=== PATIENT | male | born 1955 | race Caucasian/White ===

== ENCOUNTER 2018-09-27 12:59 | Emergency (ER) | payer OTHER, SELFPAY ==
[2018-09-27 12:59] VITALS: BP 134/102; PULSE 92; RESP 18; TEMP 36.6; O2SAT 100; BMI 25.8
[2018-09-27 13:21] LABS: Bedside Glucose 377 mg/dL (70-110)
--- NOTE | 2018-09-27 13:27 | EKG12_ITS ---
Test Reason : HYPERGLYCEMIC Blood Pressure : / mmHG Vent. Rate : 081 BPM Atrial Rate : 081 BPM P-R Int : 184 ms QRS Dur : 098 ms QT Int : 352 ms P-R-T Axes : 042 -11 031 degrees QTc Int : 408 ms Normal sinus rhythm Normal ECG Confirmed by JOSE ALEJANDRO HARDY, ESTEBAN ([id number]), school photograph editor JOHN NEFF ([id number]) on 09/28/2018 8:22:55 AM Referred By: LESIA Confirmed By:ESTEBAN BLOUNT MD
[2018-09-27] MEDS: 0.9% Normal Saline 1,000 ML 1000 ML IV (13:48)
[2018-09-27 13:51] VITALS: BP 145/96; PULSE 79; RESP 12; O2SAT 99
--- NOTE | 2018-09-27 13:57 | ED.VIS.GEN ---
History of Present Illness Chief Complaint: Hyperglycemia Detail of Chief Complaint: Blood sugar greater than 500 Informant: Patient Onset: Today Context: Sudden Onset Quality: Difficulty regulating blood sugar since medication changed Location: Not applicable Current Severity: Moderate Maximum Severity: Moderate Worsened by: Change in medication Relieved by: Nothing Associated Symptoms: Polyuria, polydipsia, polyphagia and nocturia and blurred vision Narrative: Patient is a type II diabetic whose meds were changed because of complications from his medications. He reports polyuria, polydipsia, polyphagia, nocturia and intermittent blurred vision. He presents because blood sugar was greater than 500 at home. His last A1c was 9.4. He denies fever, chills or night sweats. He denies trouble with speech or swallowing. He denies cardiac respiratory symptoms. He denies abdominal pain. He denies melena, maroon stool or blood in the stool. He denies diarrhea. He denies frequency. He reports intermittent dysuria. He denies skin lesions. He made comment that he believes his water balance is off because he is been told to drink more fluids since medications were changed. - Past Medical History (1) Type 2 diabetes mellitus Status: Chronic Past Medical History - Allergies and Home Meds Allergies/Adverse Reactions: Allergies No Known Allergies Allergy (Verified 09/27/18 13:01) Primary Care Physician: Chip Pan III, MD [Primary Care Provider] - Prior records reviewed: Yes Surgical History: no surgical history Lives: Alone Smoking Status: Never smoker Alcohol: None Review of Systems General: Denies: Chills, Fever, Malaise, Subjective, Sweats Eyes: Reports: Blurred Vision - bilaterally. Denies: Visual changes - bilaterally, Diplopia ENT: Denies: Bilateral ear pain, Rhinorrhea, Sore throat Cardiovascular: Denies: Chest pain, Palpitations Respiratory: Denies: Dyspnea, Cough, Dyspnea on exertion Gastrointestinal: Denies: Abdominal pain, Nausea, Vomiting, Diarrhea, Melena, Hematochezia Genitourinary: Reports: Dysuria. Denies: Hematuria, Frequency Musculoskeletal: Denies: Back pain, Extremity Pain Skin: Denies: Rash, Wounds Neurological: Denies: Headache, Weakness, Numbness Endocrine: Reports: Polyuria, Polydipsia. Denies: Heat intolerance, Cold intolerance Hematologic: Denies: Easy bruising, Easy bleeding Physical Exam Vital Signs/Narrative: Vital Signs Temp Pulse Resp BP Pulse Ox 09/27/18 13:51 79 12 145/96 H 99 09/27/18 12:59 98 F 92 18 134/102 H 100 Inital Vital Signs reviewed: Yes General: Well nourished, Well developed, No Acute Distress Head: Normocephalic, Atraumatic Eyes: Perrl, EOMI ENT: Moist mucous membranes, No rhinorrhea, Dry mucous membranes Neck: Supple, Nontender Cardiovascular: Regular rate, Regular rhythm, No murmurs Respiratory: No distress, CTA bilaterally, Chest nontender Abdomen: Soft, Nontender, Nondistended, Normal bowel sounds Back: Nontender, Normal Inspection Extremities: Nontender, No edema Skin: Normal color, No rash Neurological: Alert, Oriented x3, Cranial nerves II-XII grossly intact, Normal Strength, Normal Sensation Psychological: Normal affect, Normal Mood Diagnostic/Tx/Re-eval Laboratory Results 09/27/18 09/27/18 09/27/18 13:16 13:45 13:45 WBC 5.2 RBC 4.47 L Hgb 12.8 L Hct 37.1 L MCV 83.0 MCH 28.6 MCHC 34.5 RDW 12.7 RDW Differential 38.0 Plt Count 191 MPV 10.8 Immature Gran % (Auto) 0.000 Neut % (Auto) 66.1 Lymph % (Auto) 21.5 [place] % (Auto) 8.3 Eos % (Auto) 3.9 Baso % (Auto) 0.2 Absolute Neuts (auto) 3.4 Absolute Lymphs (auto) 1.11 Total Counted Not Reportable Sodium 130 L Potassium 4.4 Chloride 95 L Carbon Dioxide 29.0 Anion Gap 6 BUN 19 H Creatinine 2.07 H Estim Creat Clear Calc 35.34 Est GFR (MDRD) Af Amer 42 L Est GFR (MDRD) Non-Af 35 L BUN/Creatinine Ratio 9.2 L Glucose 372 H Calcium 8.6 POC Glucose 377 H 09/27/18 15:19 WBC RBC Hgb Hct MCV MCH MCHC RDW RDW Differential Plt Count MPV Immature Gran % (Auto) Neut % (Auto) Lymph % (Auto) [place] % (Auto) Eos % (Auto) Baso % (Auto) Absolute Neuts (auto) Absolute Lymphs (auto) Total Counted Sodium Potassium Chloride Carbon Dioxide Anion Gap BUN Creatinine Estim Creat Clear Calc Est GFR (MDRD) Af Amer Est GFR (MDRD) Non-Af BUN/Creatinine Ratio Glucose Calcium POC Glucose 306 H Creatinine September 14, 2016 was 0.8. Creatinine on February 27, 2017 was 1.06. Creatinine December 27, 2017 was 1.2. Creatinine on August 15 was 1.83. - EKG Initial EKG Interpretation: Sinus Rhythm - Ventricular rate 81. KS interval, QT interval and axis are normal. QRS duration is 98 ms. - Medical Decision Making An IV was established and he will received 1 L of normal saline. Will assess Basic metabolic panel to evaluate electrolyte, CO2 and anion gap as well as blood sugar. UA was obtained because of his reported complaint of intermittent dysuria and to assess for ketones. EKG was obtained to evaluate for ischemic changes and changes associated with hyperkalemia. Patient received 1 L of normal saline. He has urinated. He was treated with subcu insulin. Since there is no significant change in his creatinine plan is to discharge to home to follow-up with Dr. Bradley for referral to pulp refiner operator. ED Disposition - Plan for ED Patient: Disposition: Home or Assisted Living Diagnosis: Uncontrolled type 2 diabetes mellitus with hyperglycemia, End stage renal disease on dialysis due to type 2 diabetes mellitus, Mild dehydration Instructions: ED Hyperglycemia Diabetic Referrals: Chip Pan III, MD [Primary Care Provider] - 3-5 Days Additional Instructions: Since your blood sugar is poorly controlled recommend contacting Dr. Bradley's office for follow-up and probable referral to pulp refiner operator.
[2018-09-27 13:58] LABS: Absolute Lymphocyte Count 1.11 X10^3/ul (0.83-4.51); Absolute Neutrophil Count 3.4 X10^3/uL (2.0-7.7); Basophil# 0.01 X10^3/uL; Basophil% 0.2 % (0-1); Eosinophils% 3.9 % (0-5); Hematocrit 37.1 % (40-54); Hemoglobin 12.8 g/dl (13.0-16.5); Lymphocyte # 1.11 X10^3/ul (4.0); Lymphocyte % 21.5 % (19-41); Mean Corp Hgb Conc 34.5 g/gl (32-36); Mean Corpuscular Hgb 28.6 pg (27.0-32.0); Mean Platelet Vol. 10.8 fl (6.2-12.0); Monocyte# 0.43 X10^3/uL; Monocyte% 8.3 % (0-10); Neutrophil # 3.41 X10^3/uL (2.7-7.7); Neutrophil % 66.1 % (47-70); Platelet Count 191 K/mm3 (150-450); RBC Distribution Width CV 12.7 % (11.6-14.6); Red Blood Count 4.47 M/mm3 (4.6-6.2); White Blood Count 5.2 K/mm3 (4.4-11.0)
[2018-09-27 14:00] LABS: POSITIVE COUNT NO; POSITIVE DIFFERENTIAL NO; POSITIVE MORPHOLOGY NO
[2018-09-27 14:10] LABS: Anion Gap 6 (5-15); BUN 19 mg/dL (7-18); BUN/Creat Ratio 9.2 RATIO (10-20); Calcium,Total 8.6 mg/dL (8.5-10.1); Chloride 95 mmol/L (98-107); Creatinine, Serum 2.07 mg/dL (0.70-1.30); EST Glomerular Filtration Rate 35 mL/min (>60); Est Glom Filt Rate - Afr Amer 42 mL/min (>60); Estimated Creatinine Clearance 35.34 ml/min; Glucose 372 mg/dL (74-106); Potassium 4.4 mmol/L (3.5-5.1); Sodium Level 130 mmol/L (136-145)
[2018-09-27 15:21] VITALS: BP 141/92; PULSE 81; RESP 16; O2SAT 98
[2018-09-27 15:26] LABS: Bedside Glucose 306 mg/dL (70-110)
[2018-09-27] MEDS: Insulin Lispro 100 UNIT/ML INSULN.PEN SC (15:41)
== END 2018-09-27 15:44 | disposition home or self-care (01) ==
PROVIDERS: Emergency Provider Emergency Medicine; Family Provider Family Medicine; PCP Family Medicine
DX: E11.65 Type 2 diabetes mellitus with hyperglycemia (principal); E11.22 Type 2 diabetes mellitus with diabetic chronic kidney disease; N18.6 End stage renal disease; Z99.2 Dependence on renal dialysis; E86.0 Dehydration
CPT/HCPCS: 80048; 82962; 85025; 93005; 96360; 99284; J7030

== ENCOUNTER → 2019-12-08 14:16 | Outpatient (CLI) | payer SELFPAY | PROVIDERS: PCP Family Medicine; Referring Provider Nurse Practitioner Family; Visit Provider Nurse Practitioner Family | DX: R05 Cough (principal); R06.02 Shortness of breath; E11.22 Type 2 diabetes mellitus with diabetic chronic kidney disease | CPT/HCPCS: 87635; G2023; U0003 ==

== ENCOUNTER 2020-07-11 17:09 | Emergency (ER) | payer MEDICARE, OTHER, SELFPAY ==
[2020-07-11 17:10] VITALS: BP 205/128; PULSE 104; RESP 16; TEMP 36.3; O2SAT 99; BMI 27.3
--- NOTE | 2020-07-11 17:27 | ED.VIS.GEN ---
History of Present Illness Chief Complaint: Kwong C/O Informant: Patient Narrative: Patient is a 65-year-old male who presents to the emergency department after he was told to come in after he had an ultrasound of his kidneys today. He was told to get a Kwong catheter placed. This initially started on Wednesday whenever he had routine lab work done. That time they prompted him to get the ultrasound. He had this done around 3 PM today. At 4 PM they told him to come to the emergency department. They state that he did not completely empty his bladder whenever he urinated prior to getting the ultrasound. He states he does have difficulty starting pain. He does feel like he gets a distention around his kidneys/flanks bilaterally. Not sure for how long this has been going on. He denies any hematuria or dysuria. He denies any abdominal pain. No back pain. No fevers. He denies any history of BPH or prostate cancer. Past Medical History - Allergies and Home Meds Allergies/Adverse Reactions: Allergies No Known Allergies Allergy (Verified 07/11/20 17:13) Primary Care Physician: Chip Pan III, MD [Primary Care Provider] - Vj Brown MD [STAFF PHYSICIAN] - 3-5 Days Prior records reviewed: Yes Surgical History: no surgical history Smoking Status: Never smoker Review of Systems All systems negative except as indicated General: Reports: Chills, Weight loss - Intentional. Denies: Fever, Sweats Eyes: Denies: Visual changes - bilaterally, Diplopia ENT: Denies: Rhinorrhea, Sore throat Cardiovascular: Denies: Chest pain, Palpitations Respiratory: Denies: Dyspnea, Cough, Dyspnea on exertion Gastrointestinal: Denies: Abdominal pain, Nausea, Vomiting, Diarrhea Genitourinary: Reports: - - Difficulty urinating. Denies: Dysuria, Hematuria, Frequency Musculoskeletal: Denies: Back pain, Extremity Pain Skin: Denies: Rash, Wounds Neurological: Denies: Headache, Weakness, Numbness Physical Exam Vital Signs/Narrative: Vital Signs Temp Pulse Resp BP Pulse Ox 07/11/20 17:10 97.4 F L 104 H 16 205/128 H 99 Inital Vital Signs reviewed: Yes General: Well nourished, Well developed, No Acute Distress Head: Normocephalic, Atraumatic Eyes: Perrl, EOMI ENT: Moist mucous membranes, No rhinorrhea Neck: Supple, Nontender Cardiovascular: Regular rate, Regular rhythm, No murmurs Respiratory: No distress, CTA bilaterally, Chest nontender Abdomen: Soft, Nontender, Normal bowel sounds, - - Abdominal distention present Back: Nontender, Normal Inspection. Negative for: CVA tenderness Extremities: Nontender, No edema. Negative for: Calf Tenderness Skin: Normal color, No rash Neurological: Alert, Oriented x3, Cranial nerves II-XII grossly intact, Normal Strength, Normal Sensation Psychological: Normal affect, Normal Mood Diagnostic/Tx/Re-eval - Medical Decision Making Patient presents to the emergency department after he is told to come in after getting an ultrasound done. He apparently was told to get a Kwong placed. Upon arrival he states he does have to urinate and is attempting to now. Upon arrival his blood pressure is very elevated. Is 205/128. He otherwise has no complaints otherwise. Patient was able to urinate 275 mL. Repeat ultrasound was obtained which showed significant bladder distention still. At that time Kwong catheter was placed. Over 1300 mL of urine was then obtained. Will leave Kwong catheter in place. He is hypertensive but this does fluctuate throughout ED stay. He states that it does occasionally get this high at home but fluctuates. He apparently has been off of his home medications for blood pressure in the past few days. He states he will get start taking them again. He needs to have close follow-up with his PCP to manage this better. He otherwise denies any chest pain, shortness of breath, headaches. This time he has no complaints and will discharge him home in stable condition. Return precautions were discussed with him. He was instructed on care guidelines for the Kwong catheter. Urology referral made. He understands and is agreeable with plan. Discharged home in stable condition. All questions answered. ED Disposition - Plan for ED Patient: Disposition: Home or Assisted Living Diagnosis: Urinary retention, Hypertension Instructions: Caring for Your Indwelling Urinary Catheter, ED Hypertension, Established Referrals: Chip Pan III, MD [Primary Care Provider] - Vj Brown MD [STAFF PHYSICIAN] - 3-5 Days
[2020-07-11 17:44] LABS: Bacteria 0 SEEN /hpf (None Seen); Mucous, Urine 0 SEEN /hpf (<or=2+); White Blood Cells 0 SEEN /hpf (0-5)
[2020-07-11 17:45] VITALS: BP 220/130; PULSE 78; RESP 16; O2SAT 98
--- NOTE | 2020-07-11 17:50 | ED.RN ---
voided 225cc. treviño placed drained 1325cc. urine specimen sent to lab
[2020-07-11 17:56] LABS: Color, Urine Yellow (Yellow); Glucose, Dipstick 1000 mg/dl (Normal); Ketone-Dipstick Negative (Negative); Leukocyte Esterase-Dipstick Negative /ul (Negative); Nitrite-Dipstick Negative (Negative); Occult Blood-Urine 250 /ul (Negative); Protein-Dipstick Negative (Negative); Specific Gravity, Urine 1.005 (1.002-1.030); Urine Bilirubin Dipstick Negative (Negative); Urine Clarity Sl. Cloudy (Clear); Urine Urobilinogen Normal (Normal)
[2020-07-11 18:18] LABS: Red Blood Cells-Urine 10-25 SEEN /hpf (0-5); Squamous Epithelial Cells - UA 0-5 SEEN /hpf (0-5)
--- NOTE | 2020-07-11 18:54 | ED.RN ---
pt bp remains elevated pt reports has not beedn taking bp mes. he eats raw garlic and that has been keeping it down. was advice to take his perscribed bp meds. and monitor.
[2020-07-11 18:56] VITALS: BP 203/122; PULSE 89; RESP 16; O2SAT 99
== END 2020-07-11 19:05 | disposition home or self-care (01) ==
LOC: ED 18:14
PROVIDERS: Emergency Provider Emergency Medicine; PCP Family Medicine
DX: R33.9 Retention of urine, unspecified (principal); N32.89 Other specified disorders of bladder; I10 Essential (primary) hypertension; Z79.899 Other long term (current) drug therapy
CPT/HCPCS: 51702; 81001; 99283

== ENCOUNTER 2020-07-26 20:47 | Emergency (ER) | payer MEDICARE, OTHER, SELFPAY ==
[2020-07-26 20:48] VITALS: BP 119/82; PULSE 94; RESP 16; TEMP 36.6; O2SAT 97; BMI 28.8
[2020-07-26 21:10] LABS: Bedside Glucose 437 mg/dL (70-110)
--- NOTE | 2020-07-26 21:36 | ED.VIS.GEN ---
History of Present Illness Chief Complaint: Hyperglycemia Informant: Patient Narrative: Patient is a 65-year-old male with a past medical history of diabetes who presents to the emergency department for elevated blood sugars. He states last night he ate a solid that had a lot of dressing on it. He checked his blood sugar and it was in the high 300s. This morning he rechecked it it was still around the same number. He had not eaten all day. He started to feel very hungry in the afternoon so he ended up eating another solid. His blood sugar remained in the high 300s. He did take his insulin. He is on Novolin 70/30. He has been having some medication changes. He was previously on Metformin but had to be taken off this due to kidney issues. He otherwise feels fine. He has no complaints. He denies any recent illness including any cough, fever/chills. No chest pain or shortness of breath. No abdominal pain or nausea/vomiting. No diarrhea. He does have a chronic indwelling Kwong which she is supposed to have surgery for enlarged prostate soon. He denies any hematuria. He denies any significant increase in thirst or urine output. Past Medical History - Allergies and Home Meds Allergies/Adverse Reactions: Allergies No Known Allergies Allergy (Verified 07/26/20 20:51) Primary Care Physician: Chip Pan III, MD [Primary Care Provider] - As soon as possible Prior records reviewed: Yes - Hypertension, hyperlipidemia, diabetes, BPH Surgical History: no surgical history Smoking Status: Never smoker Review of Systems All systems negative except as indicated General: Denies: Chills, Fever, Sweats Eyes: Denies: Visual changes - bilaterally, Diplopia ENT: Denies: Rhinorrhea, Sore throat Cardiovascular: Denies: Chest pain, Palpitations Respiratory: Denies: Dyspnea, Cough, Dyspnea on exertion Gastrointestinal: Denies: Abdominal pain, Nausea, Vomiting, Diarrhea, Melena, Hematochezia Genitourinary: Denies: Dysuria, Hematuria, Frequency Musculoskeletal: Denies: Back pain, Extremity Pain Skin: Denies: Rash, Wounds Neurological: Denies: Headache, Weakness, Numbness Physical Exam Vital Signs/Narrative: Vital Signs Temp Pulse Resp BP Pulse Ox 07/26/20 20:48 97.8 F 94 16 119/82 H 97 Inital Vital Signs reviewed: Yes General: Well nourished, Well developed, No Acute Distress Head: Normocephalic, Atraumatic Eyes: Perrl, EOMI ENT: Moist mucous membranes, No rhinorrhea Neck: Supple, Nontender Cardiovascular: Regular rate, Regular rhythm, No murmurs Respiratory: No distress, CTA bilaterally, Chest nontender Abdomen: Soft, Nontender, Nondistended, Normal bowel sounds : - - Indwelling Kwong. Urine and output bag is clear. Back: Nontender, Normal Inspection Extremities: Nontender, No edema Skin: Normal color, No rash Neurological: Alert, Oriented x3, Cranial nerves II-XII grossly intact, Normal Strength, Normal Sensation Psychological: Normal affect, Normal Mood Diagnostic/Tx/Re-eval - Medical Decision Making Patient presents to the emerge department for high blood glucose readings. Upon arrival to the emerge department he is in no apparent distress. Vital signs within normal limits. Physical exam is benign. Will check basic lab work. Patient's lab work did reveal him to be hyperglycemic. His creatinine appears to be at his baseline. No evidence of anion gap acidosis. No DKA. He otherwise is well-appearing throughout ED stay. He completed a bolus of IV fluids and was given a subcu dose of 10 units of insulin. His glucose has been trending down. He does feel comfortable going home. He needs to contact his PCP in the morning for potential insulin change. He understands and is agreeable this plan. Return precautions were discussed with him. Discharged home in stable condition. All questions answered. ED Disposition - Plan for ED Patient: Disposition: Home or Assisted Living Diagnosis: Hyperglycemia Instructions: ED Diabetic Hyperglycemia Referrals: Chip Pan III, MD [Primary Care Provider] - As soon as possible
[2020-07-26 21:58] LABS: Bacteria 0 SEEN /hpf (None Seen); Mucous, Urine 0 SEEN /hpf (<or=2+); Squamous Epithelial Cells - UA 0 SEEN /hpf (0-5)
[2020-07-26 21:59] LABS: Absolute Neutrophil Count 4.3 X10^3/uL (2.0-7.7); Basophil# 0.04 X10^3/uL; Basophil% 0.6 % (0-1); Eosinophil# 0.36 X10^3/uL; Eosinophils% 5.8 % (0-5); Hematocrit 36.2 % (40-54); Hemoglobin 12.1 g/dL (13.0-16.5); Lymphocyte % 19.4 % (19-41); Mean Corp Hgb Conc 33.4 g/dL (32-36); Mean Corpuscular Hgb 27.4 pg (27.0-32.0); Mean Corpuscular Volume 82.1 fL (80-94); Mean Platelet Vol. 10.7 fl (6.2-12.0); Monocyte% 4.9 % (0-10); NRBC Flagged by Analyzer 0 % (0-5); Neutrophil # 4.25 X10^3/uL (2.7-7.7); Platelet Count 242 K/mm3 (150-450); RBC Distribution Width CV 13.4 % (11.6-14.6); RBC Distribution Width SD 39.7 fl (35.1-43.9); Red Blood Count 4.41 M/mm3 (4.6-6.2); White Blood Count 6.2 K/mm3 (4.4-11.0)
[2020-07-26 22:04] LABS: Color, Urine Yellow (Yellow); Glucose, Dipstick 1000 mg/dl (Normal); Ketone-Dipstick Negative (Negative); Leukocyte Esterase-Dipstick 25 /ul (Negative); Nitrite-Dipstick Negative (Negative); Occult Blood-Urine 150 /ul (Negative); Protein-Dipstick 15 mg/dl (Negative); Urine Bilirubin Dipstick Negative (Negative); Urine Clarity Clear (Clear); Urine Urobilinogen Normal (Normal)
[2020-07-26 22:14] LABS: Anion Gap 6 (5-15); BUN 31 mg/dL (7-18); Calcium,Total 8.9 mg/dL (8.5-10.1); Chloride 97 mmol/L (98-107); Creatinine, Serum 2.07 mg/dL (0.70-1.30); EST Glomerular Filtration Rate 34 mL/min (>60); Est Glom Filt Rate - Afr Amer 42 mL/min (>60); Estimated Creatinine Clearance 34.42 ml/min; Glucose 422 mg/dL (74-106); Potassium 3.6 mmol/L (3.5-5.1); Sodium Level 129 mmol/L (136-145)
[2020-07-26 22:23] LABS: Red Blood Cells-Urine 0-5 SEEN /hpf (0-5); White Blood Cells 0-5 SEEN /hpf (0-5)
[2020-07-26] MEDS: Insulin Lispro 100 UNIT/ML INSULN.PEN 10 UNIT SC (22:31)
[2020-07-26] MEDS: 0.9% Normal Saline 1,000 ML 999 ML IV (22:31)
[2020-07-26 23:35] LABS: Bedside Glucose 377 mg/dL (70-110)
[2020-07-27 00:08] VITALS: BP 166/99; PULSE 84; RESP 16; O2SAT 99
== END 2020-07-27 00:09 | disposition home or self-care (01) ==
PROVIDERS: Emergency Medicine; Emergency Provider Emergency Medicine; PCP Family Medicine
DX: E11.65 Type 2 diabetes mellitus with hyperglycemia (principal); I10 Essential (primary) hypertension; E78.5 Hyperlipidemia, unspecified; N40.0 Benign prostatic hyperplasia without lower urinary tract symptoms; Z79.4 Long term (current) use of insulin; Z79.899 Other long term (current) drug therapy
CPT/HCPCS: 36415; 80048; 81001; 82962; 85025; 96360; 99283

== ENCOUNTER 2020-08-02 10:42 | Day surgery (SDC) | payer MEDICARE, OTHER, SELFPAY ==
--- NOTE | 2020-07-29 12:52 | EKG12_ITS ---
Test Reason : PRE OP Blood Pressure : / mmHG Vent. Rate : 078 BPM Atrial Rate : 078 BPM P-R Int : 194 ms QRS Dur : 104 ms QT Int : 360 ms P-R-T Axes : 047 -22 060 degrees QTc Int : 410 ms Sinus rhythm with occasional Premature ventricular complexes Otherwise normal ECG Confirmed by JOSE ALEJANDRO HARDY, ESTEBAN ([id number]), school photograph editor TOM PORTER ([id number]) on 07/31/2020 6:08:31 AM Referred By: Vj Brown Confirmed By:ESTEBAN BLOUNT MD
[2020-07-29 13:46] LABS: Hematocrit 40.4 % (40-54); Hemoglobin 13.1 g/dL (13.0-16.5); Mean Corp Hgb Conc 32.4 g/dL (32-36); Mean Corpuscular Hgb 26.9 pg (27.0-32.0); Mean Platelet Vol. 10.3 fl (6.2-12.0); Platelet Count 250 K/mm3 (150-450); RBC Distribution Width CV 13.3 % (11.6-14.6); RBC Distribution Width SD 40.9 fl (35.1-43.9); Red Blood Count 4.87 M/mm3 (4.6-6.2); White Blood Count 5.3 K/mm3 (4.4-11.0)
[2020-07-29 14:12] LABS: Anion Gap 7 (5-15); BUN 20 mg/dL (7-18); BUN/Creat Ratio 9.6 RATIO (10-20); Calcium,Total 8.9 mg/dL (8.5-10.1); Chloride 97 mmol/L (98-107); Creatinine, Serum 2.08 mg/dL (0.70-1.30); EST Glomerular Filtration Rate 34 mL/min (>60); Est Glom Filt Rate - Afr Amer 41 mL/min (>60); Glucose 229 mg/dL (74-106); Potassium 3.8 mmol/L (3.5-5.1); Sodium Level 132 mmol/L (136-145)
[2020-07-29 14:17] LABS: Hemoglobin A1c 13.4 % (3.8-5.6)
[2020-08-02] VITALS (11 sets, daily range): BP systolic 113–141; BP diastolic 76–88; PULSE 69–86; RESP 16–18; TEMP 35.8–36.8; O2SAT 95–118; BMI 28.0; BMI 28.1
--- NOTE | 2020-08-02 08:01 | PCM.HP.STD ---
Problem List (1) Urinary retention due to benign prostatic hyperplasia Status: Acute History of Present Illness Date of Admission: 08/02/20 Chief Complaint: BPH with retention of urine The patient is a 65 year old male who developed ring urinary retention at this point is been proceed to the hospital for transurethral resection of the prostate we talked about management options he understands the risk of surgery include bleeding infection failure to cure his retention and continued use with catheters etc. Past Medical History Past Medical History (Chronic Problems): Chronic Problems Type 2 diabetes mellitus (Chronic) Allergies losartan [From Cozaar] Allergy (Verified 07/29/20 09:04) PT UNSURE OF REACTION Home Medications: Ambulatory Orders Medication Instructions Recorded Atorvastatin Calcium [Lipitor] 40 mg PO DAILY 09/27/18 hydroCHLOROthiazide 12.5 mg PO DAILY 09/27/18 [Hydrochlorothiazide] Insulin NPH/Reg 70/30 [Novolin 20 units SC BIDAC 07/26/20 70/30] Metoprolol Succinate [Toprol Xl] 50 mg PO DAILY 07/26/20 Tamsulosin HCl 0.4 mg PO DAILY 07/26/20 Amlodipine [Norvasc] 10 mg PO DAILY 07/29/20 Cinnamon Bark [Cinnamon] 1,000 mg PO DAILY 07/29/20 Garlic [Odorless Garlic] 1,250 mg PO DAILY 07/29/20 Multivitamin [Multivitamins] 1 ea PO DAILY 07/29/20 Surgical History: no surgical history Smoking Status: Never smoker Tobacco Use: Non-smoker Review of Systems Constitutional: Denies: Chills, Fever, Weight Change HEENT: Denies: Head Aches, Sinus Congestion, Sinus Drainage Cardiovascular: Denies: Chest Pain, Palpitations Respiratory: Denies: Cough, Shortness of breath at rest, Sputum production Gastrointestinal: Denies: Abdominal Pain, Nausea, Vomiting Genitourinary: Denies: Dysuria Musculoskeletal: Denies: Joint Pain, Joint Tenderness Skin: Denies: Rash, Wounds Neurological: Denies: Numbness, Tingling, Focal weakness Psychiatric: Denies: Anxiety, Depression, Homicidal Ideations, Suicidal Ideations Hematologic/ Lymphatic: Denies: Easy Bruising, Easy Bleeding VTE Information - Inpt Only VTE Present on Admission: No - Physical Exam Vitals/I&O's: Body Mass Index (BMI) 27.3 Finger Stick Blood Glucose 306 General: Alert, Oriented x3, Cooperative HEENT: Atraumatic, PERRLA, EOMI, Normocephalic Neck: Supple, No JVD, Negative Carotid Bruits Lungs: Clear to auscultation, Normal air movement Cardiovascular: Regular rate, No murmurs Abdomen: Bowel Sounds Present, Soft, Non Tender Extremities: No edema, Capillary Refill Less than 3 Seconds Skin: No rashes, No breakdown Musculoskeletal: No Tenderness to Palpation of Joints or Extremities Neurological: Cranial nerves II-XII grossly intact Psych/Mental Status: Normal Affect, Appropriate Microbiology Past 72 Hours 08/01/20 08:45 Interface Orders SARS-CoV-2 Antigen (Rapid) - Final Current Medications Cefazolin Sodium 2 gm/ Sodium (Chloride) 110 mls @ 150 mls/hr IV PREOP ONE Stop: 08/02/20 11:13 Assessment/Plan All Active Problems Urinary retention due to benign prostatic hyperplasia (Acute) Plan to proceed with a TURP
[2020-08-02] MEDS: Lactated Ringers 1,000 ML 100 ML IV ×2 (11:42→13:30)
[2020-08-02 11:51] LABS: Bedside Glucose 249 mg/dL (70-110)
[2020-08-02] MEDS: Cefazolin 2 GM in 0.9% Normal Saline 100 ML IV (11:56)
[2020-08-02] MEDS: Lubricating Jelly 60 GM Tube 30 GM TOPICAL (12:11)
--- NOTE | 2020-08-02 12:55 | PROS_PTH ---
PATIENT: PINKY MEZA LOC: [facility] [place] U#:[id number] AGE/SX: 65/M ROOM: RE08/02/[address]: Dr. Vj Brown MD : [id number] BED: DIS: 08/03/2020 SPEC #: [id number] RECD: 08/02/20 13:53 STATUS: DIONI RERekha #: [id number] CLAUDIA: 08/02/20 12:[address]: Vj Brown DEPT: SURGICAL PATHOLOGY RECD BY: Yanni Collins ENTERED: 08/05/20 07:44 SP TYPE: TURP OTHR DR: Dr. Chip Pan III, MD Tissues: Prostate, NOS Procedures: Surgery Specimen Level IV HEADER OPERATION: Cysto, TUR prostate, Olymp[employer] PRE-OP DIAGNOSIS: BPH with obstruction TISSUE SUBMITTED: Prostate tissue MICROSCOPIC DIAGNOSIS Prostate, transurethral resection: Benign nodular hyperplasia, glandular and stromal types. Chronic inflammation with focal acute inflammation. Urothelium with mild chronic and focal acute inflammation. AM:gary 08/06/2020 MICROSCOPIC DESCRIPTION Slides are reviewed. GROSS DESCRIPTION Received is one container labeled with the patient's name and designated prostate tissue. The specimen consists of multiple irregular fragments of pink-shields, rubbery, soft tissue that in aggregate weigh 27.3 gm and measure in aggregate 6.5 x 6.5 x 2.2 cm. Residential Instructor portions are submitted in ten cassettes. / AM:gary 08/05/20 TC:2 CPT: 28907
--- NOTE | 2020-08-02 13:04 | DCINST_ITS ---
Discharge Diet: No Restrictions Discharge Activity: Return to Normal Activity, May Not Drive - for 2 days. Additional Activity Instructions:: Please be aware that pain medications may cause nausea. You should typically eat light foods as you take your pain medication. Pain medication may cause constipation, if this is a problem for you, please discuss with your doctor. Instructions: Transurethral Resection of the Prostate (TURP) Allergies/Adverse Reactions: Allergies losartan [From Cozaar] Allergy (Verified 07/29/20 09:04) PT UNSURE OF REACTION Medications to take at Discharge Atorvastatin Calcium [Lipitor] 40 mg PO DAILY 09/27/18 hydroCHLOROthiazide [Hydrochlorothiazide] 12.5 mg PO DAILY 09/27/18 Insulin NPH/Reg 70/30 [Novolin 70/30] 20 units SC BIDAC 07/26/20 Metoprolol Succinate [Toprol Xl] 50 mg PO DAILY 07/26/20 Tamsulosin HCl 0.4 mg PO DAILY 07/26/20 Amlodipine [Norvasc] 10 mg PO DAILY 07/29/20 Cinnamon Bark [Cinnamon] 1,000 mg PO DAILY 07/29/20 Garlic [Odorless Garlic] 1,250 mg PO DAILY 07/29/20 Multivitamin [Multivitamins] 1 ea PO DAILY 07/29/20 Primary Care Physician: hCip Pan III, MD [Primary Care Provider] - Test Results: Test results from this visit will be discussed in further detail at your follow- up appointment, if applicable. Please Follow Up With: Vj Brown MD When: in 2 weeks, please call to make an appointment.
--- NOTE | 2020-08-02 13:09 | PCM.OPRPT ---
Problem List (1) Urinary retention due to benign prostatic hyperplasia Status: Acute Report of Operation Date of Procedure: 08/02/20 Pre-Operative Diagnosis: BPH with obstruction Post-Operative Diagnosis: Same Surgery/Procedure Performed:: Transurethral section of the prostate Description of Surgical Findings:: In the preoperative setting I discussed with the patient how the surgery would be done with expect afterwards. We discussed how a prostate resection is done and we discussed the risk of the surgery including, bleeding, infection, retrograde ejaculation, changes with ejaculation or intercourse,. We discussed the possibility that the resection of the prostate may not alleviate his urinary symptoms. We discussed the small risk of developing scar tissue along the urethral channel and strictures. We also discussed the chance of the prostate could grow back and he may need further surgery or treatment in the future for prostate problems. Patient was taken back to the operating room, timeout procedure was performed, he was identified and marked and placed on the operating room table. He underwent general anesthesia. He was placed in dorsolithotomy position. Penis and testicles were prepped and draped in usual sterile fashion. Went into the bladder using the visual obturator with a resectoscope. Once inside the bladder identified the right and left ureteral orifice. I then identified the prostate and the anatomy of the prostate. I marked out the area of the sphincter and the verumontanum was identified. I then proceeded with the prostate resection first resected the median lobe. And then resected the right lobe of the prostate. Then to resect the left lobe of the prostate. I then resected the apical tissue of the prostate. Made sure that there was no injury to the sphincter or the verumontanum was still intact. At the end of the resection all the chips were Ellik out of the bladder. I then identified the left and right ureteral orifice and these were confirmed to be in good position and effluxing and not injured. The resectoscope was removed, a 22 German catheter was placed into the bladder on continuous irrigation. And the urine was fairly light pink color and draining normally. He was taken back to the PACU in good condition. Type of Anesthesia:: General - Admit VTE Documentation VTE Present on Admission: No VTE Mechan Device Prophylaxis: SCD's
--- NOTE | 2020-08-02 13:35 | SUR.PHASEI ---
PT BLOOD SUGAR 235, DR. VAIL ADVISED, NO ACTION REQUIRED PER DR. VAIL
[2020-08-02 13:41] LABS: Bedside Glucose 235 mg/dL (70-110)
[2020-08-02] MEDS: 0.9% Normal Saline 1,000 ML 75 ML IV (15:00)
[2020-08-02 16:46] LABS: Bedside Glucose 262 mg/dL (70-110)
[2020-08-02] MEDS: Insulin Human 75/25 Kwickpen 20 UNIT SC (17:39)
[2020-08-02] MEDS: Tamsulosin HCl 0.4 MG Capsule PO (17:41)
[2020-08-02] MEDS: Atorvastatin Calcium 40 MG Tablet PO (21:08)
[2020-08-02] MEDS: Ciprofloxacin 500 MG Tablet PO (21:08)
[2020-08-02] MEDS: Docusate Sodium 100 MG Capsule PO (21:08)
[2020-08-03 02:06] VITALS: BP 118/80; PULSE 80; RESP 16; TEMP 36.8; O2SAT 98; BMI 28.1
[2020-08-03] MEDS: 0.9% Normal Saline 1,000 ML 75 ML IV (02:08)
[2020-08-03 06:22] VITALS: BMI 28.1
[2020-08-03 07:59] VITALS: BP 153/97; PULSE 83; RESP 18; TEMP 37; O2SAT 97
[2020-08-03] MEDS: Multivitamins,Therapeutic Tablet 1 TABLET PO (08:07)
[2020-08-03] MEDS: oxyCODONE 5 MG Tablet PO (08:07)
[2020-08-03] MEDS: Acetaminophen 325 MG Tablet PO (08:08)
[2020-08-03] MEDS: Insulin Human 75/25 Kwickpen 20 UNIT SC (09:14)
[2020-08-03 09:16] VITALS: PULSE 84
[2020-08-03] MEDS: Pantoprazole Sodium 40 MG Tablet PO (09:16)
[2020-08-03] MEDS: hydroCHLOROthiazide 12.5mg 12.5 MG PO (09:16)
[2020-08-03] MEDS: Metoprolol(XL)Succ 50 MG Tablet PO (09:16)
[2020-08-03] MEDS: Docusate Sodium 100 MG Capsule PO (09:16)
[2020-08-03] MEDS: Ciprofloxacin 500 MG Tablet PO (09:16)
[2020-08-03] MEDS: amLODIPine 10 MG Tablet PO (09:16)
[2020-08-03 09:20] VITALS: PULSE 84; BMI 28.1
[2020-08-03 12:29] VITALS: BP 148/95; PULSE 85; RESP 18; TEMP 36.6; O2SAT 100
== END 2020-08-03 12:59 | disposition home or self-care (01) ==
LOC: SDC 10:44 → AC 10:45 → MS3 14:08
PROVIDERS: Anesthesiology; PCP Family Medicine; Referring Provider Urology; Visit Provider Urology
PROC: (CPT 52601; principal; 2020-08-02 12:45)
DX: N40.1 Benign prostatic hyperplasia with lower urinary tract symptoms (principal); N13.8 Other obstructive and reflux uropathy; R33.8 Other retention of urine; N32.89 Other specified disorders of bladder; I12.9 Hypertensive chronic kidney disease with stage 1 through stage 4 chronic kidney disease, or unspecified chronic kidney disease; E11.22 Type 2 diabetes mellitus with diabetic chronic kidney disease; N18.9 Chronic kidney disease, unspecified; E11.65 Type 2 diabetes mellitus with hyperglycemia; Z20.828 Contact with and (suspected) exposure to other viral communicable diseases; E78.00 Pure hypercholesterolemia, unspecified; G47.30 Sleep apnea, unspecified; F41.9 Anxiety disorder, unspecified; Z79.4 Long term (current) use of insulin; Z79.899 Other long term (current) drug therapy
CPT/HCPCS: 00914; 52601; 36415; 80048; 82962; 83036; 85027; 87426; 88305; 93005; 97802; C9803; J7030; J7120; J2405

== ENCOUNTER → 2023-05-27 | Outpatient (CLI) | payer MEDICARE, SELFPAY ==
[2023-05-27 17:39] LABS: PSA,Total - Annual Screen 3.88 ng/mL (0.00-4.00)
== END | disposition home or self-care (01) ==
PROVIDERS: PCP Family Medicine; Visit Provider Urology
DX: Z12.5 Encounter for screening for malignant neoplasm of prostate (principal)
CPT/HCPCS: 36415; 84153; G0103